=== PATIENT | female | born 1950 | race Caucasian/White ===

== ENCOUNTER 2022-01-07 12:38 | Emergency (ER) | payer MEDICARE ==
[2022-01-07 12:47] VITALS: BP 144/78
[2022-01-07] MEDS ORDERED: lidocaine 1% 20 ML MDV SUBQ ONE (13:00)
[2022-01-07] MEDS ORDERED: TETANUS/DIPHTHERIA/PERTUSSIS 0.5 ML SYRINGE IM ONE (13:26)
--- NOTE | 2022-01-07 13:28 | ED Physician Documentation ---
PD HPI UPPER EXT INJURY - Stated complaint Stated Complaint: LEFT FINGER LAC - Chief complaint Chief Complaint: Laceration - History obtained from History obtained from: Patient, Friend - History of Present Illness Location: Left, Finger (ring finger) Type of injury: Laceration Where injury occurred: Home Timing - onset: Today Timing - duration: Minutes Timing - details: Abrupt onset, Still present Improved by: Rest, Immobilization Worsened by: Moving, Palpating Associated symptoms: No: Weakness, Numbness, Tingling Contributing factors: No: Anticoagulated Similar symptoms before: Diagnosis (laceration) Recently seen: Not recently seen - Additonal information Additional information: Previously well 72-year-old Valerie Amezcua was preparing food when she lacerated her left ring finger with a sharp knife. She is coming to the emergency department for suturing she is uncertain when her last tetanus was. Review of Systems Constitutional: denies: Fever Nose: denies: Congestion Throat: denies: Sore throat Respiratory: denies: Cough GI: denies: Vomiting Skin: reports: Laceration (s) PD PAST MEDICAL HISTORY - Past Medical History Cardiovascular: Hypertension Respiratory: Asthma Endocrine/Autoimmune: None GI: GERD PARTY HOST/HOSTESS: None : None HEENT: Glaucoma Psych: Depression Musculoskeletal: None Derm: None - Past Surgical History Past Surgical History: Yes /PARTY HOST/HOSTESS: section - Present Medications Home Medications: Ambulatory Orders Medication Instructions Recorded Confirmed Albuterol Sulfate [Albuterol 8.5 gm IH DAILY 07/24/14 07/24/14 Sulfate Hfa] Aspirin [Aspir 81] 81 mg PO DAILY 07/24/14 07/24/14 Azithromycin [Zithromax] 250 mg PO DAILY #6 tablet 07/24/14 Benzonatate [Tessalon Perle] 100 - 200 mg PO TID PRN #20 capsule 07/24/14 FLUoxetine [PROzac] mg PO DAILY 07/24/14 07/24/14 Mometasone/Formoterol [Dulera 100 13 gm IH BID 07/24/14 07/24/14 Mcg/5 Mcg Inhaler] amLODIPine [Norvasc] mg PO DAILY 07/24/14 07/24/14 lisinopriL [Lisinopril] mg PO 07/24/14 07/24/14 predniSONE [Prednisone] 10 mg PO DAILY #26 tab.ds.pk 07/24/14 - Allergies Allergies/Adverse Reactions: Allergies Allergy/AdvReac Type Severity Reaction Status Date / Time No Known Drug Allergies Allergy Verified 07/24/14 10:18 - Social History Does the pt smoke?: No Smoking Status: Never smoker Does the pt drink ETOH?: No Does the pt have substance abuse?: No - Immunizations Immunizations are current?: Yes - POLST Patient has POLST: No PD ED PE NORMAL - Vitals Vital signs reviewed: Yes (hypertensive) - General General: Alert and oriented X 3, No acute distress, Well developed/nourished - HEENT HEENT: Atraumatic, PERRL, EOMI - Respiratory Respiratory: No respiratory distress - Derm Derm: Normal color, Warm and dry, No rash - Extremities Extremities: No deformity, No edema, Other (There is a 3 cm laceration to the tip of the left ring finger. There is a flap laceration without evidence of foreign material.) - Neuro Neuro: Alert and oriented X 3, filler in 2-12 intact, No motor deficit, No sensory deficit, Normal speech Eye Opening: Spontaneous Motor: Obeys Commands Verbal: Oriented GCS Score: 15 - Psych Psych: Normal mood, Normal affect Results - Vitals Vitals: Vital Signs - 24 hr 01/07/22 12:45 Temperature 37.1 C Heart Rate 78 Respiratory 18 Rate Blood Pressure 144/78 H O2 Saturation 99 Oxygen O2 Source Room air Procedures - Laceration (location) left ring finger tip Wound type: Curved, Flap, Into subcut fat, Clean Neurovascular status: Sensory intact, Motor intact, Vascular intact Anesthesia: Lidocaine 1%, Volume - enter ml (3) Wound preparation: Hibiclens, Irrigated copiously NS, Wound explored, To the base Skin layer closure: Nylon, Interrupted, Size #-0 - enter number (4-0), Sutures - enter # (7) Other: Patient tolerated well, No complications, Neurovascular intact, Dressing applied, Tetanus booster given PD MEDICAL DECISION MAKING - ED course Complexity details: considered differential, d/w patient, d/w family ED course: 72-year-old female with a laceration to her left ring finger has sutures placed and she was instructed to have suture removal in 7 to 10 days. Departure - Departure Disposition: 01 Home, Self Care Clinical Impression: Laceration of ring finger Qualifiers: Encounter type: initial encounter Damage to nail status: without damage Foreign body presence: without foreign body Laterality: left Qualified Code(s): S61.215A - Laceration without foreign body of left ring finger without damage to nail, initial encounter Condition: Stable Instructions: ED Laceration Hand Follow-Up: EDEN CLEMENTS MD [Primary Care Provider] - Comments: Avlerie, today looks like you have cut your finger and its been a while since you have had a tetanus booster so we have given you a tetanus booster as well. The sutures will need to be removed in 7 to 10 days.
== END 2022-01-07 13:54 | disposition home or self-care (01) ==
LOC: ED 12:38
DX: S61.215A Laceration without foreign body of left ring finger without damage to nail, initial encounter (principal); W26.0XXA Contact with knife, initial encounter; Y93.G1 Activity, food preparation and clean up; Y92.009 Unspecified place in unspecified non-institutional (private) residence as the place of occurrence of the external cause
CPT/HCPCS: 12002; 90471; 99283